=== PATIENT | male | born 1950 | race Caucasian/White ===

== ENCOUNTER 2016-07-01 12:06 | Emergency (ER) | payer MEDICARE, OTHER ==
--- NOTE | 2016-07-01 12:12 | ER Document Report ---
ED General - General Stated Complaint: DIFFICULTY BREATHING Mode of Arrival: Medic Information source: Relative, Outside Facility Records Notes: 65-year-old male who is a hospice patient with end-stage liver disease respiratory distress presents from home. Family called EMS because patient was not doing well has been altered for the past 5 days. However we received a call from hospice nurse who requests patient be transferred to [facility] as she already has a room available there. TRAVEL OUTSIDE OF THE [place] IN LAST 30 DAYS: No - HPI Onset: Last week Onset/Duration: Persistent Quality of pain: No pain Severity: Severe Pain Level: Denies Associated symptoms: None Exacerbated by: Denies Relieved by: Denies Similar symptoms previously: Yes Recently seen / treated by doctor: Yes - Related Data Allergies/Adverse Reactions: No Known Allergies Allergy (Verified 10/10/15 04:31) Past Medical History - Social History Smoking Status: Former Smoker Cigarette use (# per day): No Chew tobacco use (# tins/day): No Smoking Education Provided: No Family History: Reviewed & Not Pertinent - Past Medical History Cardiac Medical History: Reports: Hx Atrial Fibrillation, Hx Congestive Heart Failure - SIX YEARS AGO, Hx Coronary Artery Disease, Hx Heart Attack, Hx Hypercholesterolemia, Hx Hypertension Pulmonary Medical History: Reports: Hx Pneumonia Neurological Medical History: Endocrine Medical History: Reports: Hx Diabetes Mellitus Type 2, Hx Hypothyroidism Renal/ Medical History: Reports: Hx Renal Insufficiency Musculoskeltal Medical History: Psychiatric Medical History: Denies: Hx Depression Past Surgical History: Reports: Hx Adenoidectomy, Hx Cardiac Catheterization, Hx Cardiac Surgery - AUGUST 07, 2013, Hx Internal Defibrillator, Hx Pacemaker - Immunizations Immunizations up to date: Yes Hx Diphtheria, Pertussis, Tetanus Vaccination: Yes Hx Pneumococcal Vaccination: 06/30/12 Review of Systems - Review of Systems Notes: PHYSICAL EXAMINATION: GENERAL: Ill-appearing male HEAD: Atraumatic, normocephalic. EYES: Pupils equal round and reactive to light, extraocular movements intact, sclera anicteric, conjunctiva are normal. ENT: Coarse upper airway breath sounds LUNGS: Coarse rhonchi throughout satting 98% on 4 L nasal cannula HEART: Tachycardic ABDOMEN: Soft, nontender, mildly distended abdomen Musculoskeletal: Normal range of motion NEUROLOGICAL: Patient intermittently opens his eyes and has garbled speech SKIN: Warm, Dry, normal turgor, no rashes or lesions noted. -: Yes ROS unobtainable due to patient's medical condition Physical Exam - Vital signs Vitals: Temp Resp BP Pulse Ox 98.5 F 16 85/45 L 96 07/01/16 12:10 07/01/16 12:10 07/01/16 12:10 07/01/16 12:10 Course - Re-evaluation Re-evalutation: 07/01/16 12:11 Given the patient is a DNR/DNI on hospice do not believe any specific interventions appropriate, patient is satting well on oxygen 07/01/16 15:44 I spoke with [facility] and they have accepted the patient, he will be transferred there for end-of-life care Family has been made quite aware, and they're happy with this plan is tearful but understands that it is appropriate and best in the patient's interest to minimize pain and stress 07/01/16 15:48 - Vital Signs Vital signs: Temp Pulse Resp BP Pulse Ox 98.5 F 16 85/45 L 96 07/01/16 12:10 07/01/16 12:10 07/01/16 12:10 07/01/16 12:10 Discharge - Discharge Clinical Impression: Encounter for hospice care Ascites Qualifiers: Ascites type: other type Qualified Code(s): R18.8 - Other ascites Liver failure Qualifiers: Liver failure chronicity: subacute Hepatic coma status: with hepatic coma Qualified Code(s): K72.01 - Acute and subacute hepatic failure with coma Condition: Critical Disposition: OTHER
[2016-07-01 15:42] VITALS: BP 77/52
== END 2016-07-01 15:30 | disposition other institution (70) ==
LOC: ER 12:06
DX: Z51.5 Encounter for palliative care (principal); K72.01 Acute and subacute hepatic failure with coma; R18.8 Other ascites; R06.00 Dyspnea, unspecified; R09.89 Other specified symptoms and signs involving the circulatory and respiratory systems; R00.0 Tachycardia, unspecified; Z66 Do not resuscitate; I48.91 Unspecified atrial fibrillation; I25.10 Atherosclerotic heart disease of native coronary artery without angina pectoris; I25.2 Old myocardial infarction; I10 Essential (primary) hypertension; Z11.9 Encounter for screening for infectious and parasitic diseases, unspecified; Z87.01 Personal history of pneumonia (recurrent); Z95.810 Presence of automatic (implantable) cardiac defibrillator; Z87.891 Personal history of nicotine dependence
CPT/HCPCS: 99285